=== PATIENT | female | born 1955 | race Caucasian/White ===

== ENCOUNTER → 2016-12-29 17:11 | Outpatient (CLI) | payer BC ==
[2011-02-25 12:42] VITALS: BMI 29.0
== END | disposition home or self-care (01) ==
LOC: D.MAMMO 12-03 08:00
DX: Z12.31 Encounter for screening mammogram for malignant neoplasm of breast (principal)

== ENCOUNTER → 2018-01-04 19:48 | Outpatient (CLI) | payer BC ==
[2011-02-25 12:42] VITALS: BMI 29.0
== END | disposition home or self-care (01) ==
LOC: D.MAMMO 12-16 11:00
DX: Z12.31 Encounter for screening mammogram for malignant neoplasm of breast (principal)

== ENCOUNTER → 2018-01-27 18:52 | Outpatient (CLI) | payer BC ==
[2011-02-25 12:42] VITALS: BMI 29.0
== END | disposition home or self-care (01) ==
LOC: D.MAMMO 15:00
DX: R92.8 Other abnormal and inconclusive findings on diagnostic imaging of breast (principal)